=== PATIENT | female | born 1990 | race Caucasian/White ===

== ENCOUNTER 2020-09-03 14:14 | Emergency (ER) | payer OTHER ==
[2020-09-03 14:59] LABS: HEMOGLOBIN 14.1 gm/dl (12.3-15.3); RED BLOOD COUNT 4.72 M/UL (4.00-5.10); WHITE BLOOD COUNT 10.4 K/UL (4.5-11.0)
[2020-09-03 15:36] LABS: BUN/CREATININE RATIO 9 (0-10)
== END 2020-09-03 18:02 | disposition home or self-care (01) ==
LOC: ER1 14:14
PROVIDERS: Physician Assistant
DX: O99.891 Other specified diseases and conditions complicating pregnancy (principal); R10.12 Left upper quadrant pain; Z3A.01 Less than 8 weeks gestation of pregnancy
CPT/HCPCS: 76775; 80053; 81001; 83690; 84702; 85025; 99284